=== PATIENT | male | born 1950 | race Two or more races ===

== ENCOUNTER 2022-09-08 06:52 | Day surgery (SDC) | payer MEDICARE ==
[~2022-09-08] VITALS: Ht 170.2 cm; Wt 86.2 kg
[~2022-09-08 06:52] MED LIST: ASPIRIN LOW81 M1 PO; DOCUSATE SOD100 MG PO; FERROUS SULF325 M2 PO; FISH OIL1 CAP PO; GABAPENTIN300 M2 PO; LEVOTHYROXIN25 MC1 PO; LIPITOR20 M1 PO; LISINOPRIL40 MG PO; MAGNESIUM OXID400 M3 PO; METFORMIN500 M2 PO; METOPROLOL SUCC50 MG PO; OMEPRAZOLE DR40 MG PO; PROSCAR5 MG PO; RANOLAZINE ER500 MG PO; TAMSULOSIN HCL0.4 MG PO
[2022-09-08] MEDS ORDERED: GOLYTELY PO (08:20)
[2022-09-08 08:58] VITALS: BP 119/60
== END 2022-09-08 09:00 | disposition home or self-care (01) ==
LOC: ENDO 06:52 → ORM 08:00 → ENDO 09:00
PROVIDERS: ATTEND Surgery
PROC: 0DJD8ZZ Inspection of Lower Intestinal Tract, Via Natural or Artificial Opening Endoscopic (ICD-10-PCS; principal; 2022-09-08)
DX: Z12.11 Encounter for screening for malignant neoplasm of colon (principal); I10 Essential (primary) hypertension; E11.9 Type 2 diabetes mellitus without complications; Z86.010 Personal history of colon polyps; Z80.0 Family history of malignant neoplasm of digestive organs; Z95.5 Presence of coronary angioplasty implant and graft

== ENCOUNTER → 2022-09-09 | Day surgery (SDC) | payer MEDICARE ==
[~2022-09-09] VITALS: Ht 170.2 cm; Wt 84.8 kg
[~2022-09-09] MED LIST changes: +GOLYTELY PO
[2022-09-09 09:37] VITALS: BP 116/74
== END ==
LOC: ORM 06:45
PROVIDERS: ATTEND Surgery
PROC: 0DJD8ZZ Inspection of Lower Intestinal Tract, Via Natural or Artificial Opening Endoscopic (ICD-10-PCS; principal; 2022-09-09)
DX: Z12.11 Encounter for screening for malignant neoplasm of colon (principal); K64.8 Other hemorrhoids; E11.9 Type 2 diabetes mellitus without complications; I10 Essential (primary) hypertension; I25.10 Atherosclerotic heart disease of native coronary artery without angina pectoris; K21.9 Gastro-esophageal reflux disease without esophagitis; Z86.010 Personal history of colon polyps; Z80.0 Family history of malignant neoplasm of digestive organs; Z95.5 Presence of coronary angioplasty implant and graft